=== PATIENT | male | born 1965 | race Caucasian/White ===

== ENCOUNTER 2016-04-29 16:23 | Emergency (ER) | payer OTHER ==
[2016-04-29 16:31] VITALS: BP 124/66; PULSE 107; RESP 20; TEMP 99.3; O2SAT 93
--- NOTE | 2016-04-29 17:19 | UCPHY ---
H & P Patient Type: New Chief Complaint Nursing Narrative: pt c/o of persistent cough/SOBx 8 weeks. trouble sleeping. has tried cough medicines with no help. Time Seen by Provider: 04/29/16 17:06 HPI/ROS: This patient has a cough for 8 weeks now that is generally a dry hacky cough but is not improving. He is having difficulty sleeping his 's particularly having difficulty sleeping due to the symptoms. He has mild nasal congestion associated with this. He also describes low-grade subjective fevers intermittently. ROS: No high fevers or chills. No significant fatigue. No other constitutional symptoms. HEENT: Negative other than the nasal congestion. Pulmonary: No pleuritic pain. No respiratory distress. No hemoptysis. Cardiovascular: No leg swelling or calf pain. No lightheadedness or heart palpitations. GI: No complaints. 10 point ROS is otherwise negative. Source: Patient Exam Limitations: No limitations - Medical/Surgical History Other PMH: brain tumor/surgery at age 15. - Family History Significant Family History: No pertinent family hx - Social History Smoking Status: Never smoked Alcohol Use: Rarely Drug Use: None Additional Social History: No recent foreign travel. - Physical Exam Exam: General Appearance: Alert, no distress. Eyes: Pupils equal and round no pallor or injection. ENT, Mouth: Mucous membranes moist. Respiratory: Clear to auscultation bilaterally. I appreciate no rales or rhonchi. Has occasional cough with cough has faint expiratory wheeze. Cardiovascular: Regular rate and rhythm. No murmur gallop rub. No JVD. No peripheral edema. Gastrointestinal: Abdomen is soft and nontender, no masses, bowel sounds normal. Neurological: Alert with no focal deficits. Skin: Warm and dry, no rashes. Musculoskeletal: Neck is supple nontender. Extremities are symmetrical, full range of motion. Psychiatric: Mood and affect are normal DIFFERENTIAL DIAGNOSIS: After history and physical exam differential diagnosis was considered for bronchitis-potential atypical bacteria, pulmonary lesion, doubt pneumonia. Constitutional: Initial Vital Signs Temperature (C) 37.4 C 04/29/16 16:24 Heart Rate 107 H 04/29/16 16:24 Respiratory Rate 20 04/29/16 16:24 Blood Pressure 124/66 H 04/29/16 16:24 O2 Sat (%) 93 04/29/16 16:24 O2 Delivery Mode Room Air Allergies/Adverse Reactions: No Known Allergies Allergy (Unverified 04/29/16 16:31) Home Medications: Medication Instructions Recorded Albuterol Hfa Anes Only [Proair 2 puffs IH Q4 PRN #1 mdi 04/29/16 Hfa Icu (*)] Azithromycin [Zithromax] 250 mg PO DAILY #6 tab 04/29/16 Fluticasone Hfa 220 Mcg [Flovent 2 puffs IH DAILY #1 mdi 04/29/16 220 MCG Hfa MDI (*)] Statin 04/29/16 Medical Decision Making ED Course/Re-evaluation: Patient declined chest x-ray at this time. Will treat him for bronchitis with plan to follow up with primary physician if cough still does not resolve over the next week with treatment plan. He does not have any concerning findings on exam to suggest lower respiratory infection Departure - Departure Disposition: Home, Routine, Self-Care Clinical Impression: Acute bronchitis Qualifiers: Bronchitis organism: unspecified organism Qualified Code(s): J20.9 - Acute bronchitis, unspecified Condition: Good Instructions: Acute Bronchitis (ED) Additional Instructions: Diagnosis: Acute bronchitis Plan: Humidifier Albuterol inhaler with spacer for cough, wheeze or shortness of breath Zithromax antibiotic If her cough does not resolve with treatment plan over the next week then start Flovent steroid inhaler in addition. Follow up with primary care physician listed below for a recheck. Return for any significant worsening despite the treatment plan Referrals: Susan Gibson DO [Doctor of Osteopathy] - As per Instructions Prescriptions: Albuterol Hfa Anes Only [Proair Hfa Icu (*)] 2 puffs IH Q4 PRN #1 mdi PRN Reason: Wheezing Azithromycin [Zithromax] 250 mg PO DAILY #6 tab Fluticasone Hfa 220 Mcg [Flovent 220 MCG Hfa MDI (*)] 2 puffs IH DAILY #1 mdi - PQRS PQRS Measurement: NA
== END 2016-04-29 17:22 | disposition home or self-care (01) ==
LOC: CED 16:23
DX: J20.9 Acute bronchitis, unspecified (principal)
CPT/HCPCS: 99204-PO; G0463-PO